=== PATIENT | male | born 1995 ===

== ENCOUNTER 2019-08-08 22:11 | Emergency (ER) | payer SELFPAY ==
[~2019-08-08] VITALS: Ht 175.3 cm; Wt 64.8 kg
[2019-08-08 22:21] VITALS: BP 120/59
[2019-08-08] MEDS ORDERED: DEXAMETHASONE 4 MG TABLET ONE (22:35)
[2019-08-08] MEDS ORDERED: DEXAMETHASONE 4 MG TABLET PO ONE (23:00)
== END 2019-08-08 22:58 ==
LOC: ED 22:52
DX: J02.0 Streptococcal pharyngitis (principal)
CPT/HCPCS: 87081; 87880; 99283

== ENCOUNTER 2019-10-15 08:31 | Emergency (ER) | payer SELFPAY ==
[~2019-10-15] VITALS: Ht 172.7 cm; Wt 65.0 kg
[2019-10-15 08:34] VITALS: BP 115/69
[2019-10-15] MEDS ORDERED: KETOROLAC 60 MG/2 ML ONE (08:56)
[2019-10-15] MEDS ORDERED: KETOROLAC 30 MG/1 ML IM ONE (09:00)
--- NOTE | 2019-10-15 10:41 | NUR ---
Patient given discharge instructions and they have confirmed that they understand the instructions. Patient ambulatory with steady gait.
== END 2019-10-15 10:42 | disposition home or self-care (01) ==
LOC: ED 09:14
DX: S90.32XA Contusion of left foot, initial encounter (principal); J45.909 Unspecified asthma, uncomplicated; W10.8XXA Fall (on) (from) other stairs and steps, initial encounter; Y93.89 Activity, other specified; Y92.098 Other place in other non-institutional residence as the place of occurrence of the external cause; Y99.8 Other external cause status
CPT/HCPCS: 73630; 96372; 99283; J1885